=== PATIENT | male | born 1970 | race Caucasian/White ===

== ENCOUNTER 2023-03-27 13:41 | Outpatient (REF) | payer SELFPAY ==
[2023-03-27 15:01] LABS: Abs Immature Grans 0.02 10^3/uL (0.0-0.06); Absolute Basophil Count 0.05 10^3/uL (0.0-0.2); Absolute Eosinophil Count 0.11 10^3/uL (0.0-0.7); Absolute Lymphocyte Count 1.05 10^3/uL (1.2-3.4); Absolute Monocyte Count 0.34 10^3/uL (0.1-0.8); Absolute Neutrophil Count 3.84 10^3/uL (1.2-6.7); Basophils % 0.9; HCT 37.8 % (40.0-50.0); HGB 11.5 g/dL (13.5-17.5); Immature Grans % 0.4; Lymphocytes % 19.4; MCH 20.1 pg (27.0-33.0); MCHC 30.4 % (32.0-36.0); MCV 66 fL (80-95); Monocytes % 6.3; RBC 5.71 10^6/uL (4.36-5.78); RDW-SD 39.5 fL; WBC 5.41 10^3/uL (4.4-10.8)
[2023-03-27 15:23] LABS: Diff Comment Agrees w/ Instrument; Platelet Count 266 10^3/uL (130-400)
[2023-03-27 15:24] LABS: Basophilic Stippling Present; Microcytosis 2+; Poikilocytes 2+
[2023-03-27 15:39] LABS: Iron 121 ug/dL (65-175); Total Iron Binding Capacity 298 ug/dL (250-450); Transferrin Sat 41 % (20-55)
[2023-03-27 16:16] LABS: ALT 24 U/L (16-63); AST 20 U/L (15-37); Albumin 4.1 g/dL (3.4-5.0); Alkaline Phosphatase 58 U/L (46-116); Anion Gap 10.3 mmol/L (3-11); BUN 20 mg/dL (7-18); Bilirubin, Total 0.6 mg/dL (0.2-1.0); CO2 25.7 mmol/L (21.0-32.0); CREATININE 1.1 mg/dL (0.70-1.30); Calcium 9.1 mg/dL (8.5-10.1); Chloride 108 mmol/L (98-107); Estimated GFR 80.27 (mL/min/1.73m2); Ferritin 173 ng/mL (26-388); Folate 9.9 ng/mL (8.6-20.0); Glucose 95 mg/dL (74-106); Sodium 144 mmol/L (136-145); TSH (W/Ref FT4) 1.55 uIU/mL (0.36-3.74); Total Protein 6.8 g/dL (6.4-8.2); Vitamin B12 309 pg/mL (193-986)
== END 2023-03-27 13:42 | disposition home or self-care (01) ==
LOC: NCHCN 13:41
PROVIDERS: PCP Family Medicine; Visit Provider Family Medicine
DX: D56.8 Other thalassemias (principal); F10.10 Alcohol abuse, uncomplicated; R63.5 Abnormal weight gain; R42 Dizziness and giddiness
CPT/HCPCS: 80053; 82607; 82728; 82746; 83540; 83550; 84443; 85025

== ENCOUNTER 2024-03-17 16:29 | Outpatient (REF) | payer OTHER, SELFPAY ==
[2024-03-17 22:19] LABS: HCT 35.4 % (40.0-50.0); HGB 10.5 g/dL (13.5-17.5); MCH 19.9 pg (27.0-33.0); MCHC 29.7 % (32.0-36.0); Platelet Count 273 10^3/uL (130-400); RBC 5.28 10^6/uL (4.36-5.78); RDW 14.8 % (11.8-14.1); RDW-SD 34.3 fL; WBC 6.19 10^3/uL (4.4-10.8)
[2024-03-17 22:37] LABS: MCV 67 fL (80-95)
[2024-03-17 22:52] LABS: ALT 24 U/L (16-63); AST 17 U/L (15-37); Alkaline Phosphatase 65 U/L (46-116); Anion Gap 8.9 mmol/L (3-11); BUN 22 mg/dL (7-18); CO2 27.1 mmol/L (21.0-32.0); CREATININE 1.2 mg/dL (0.70-1.30); Calcium 8.9 mg/dL (8.5-10.1); Calculated LDL 92 mg/dL (<100); Chloride 110 mmol/L (98-107); Cholesterol 167 mg/dL (<200); Estimated GFR 71.86 (mL/min/1.73m2); Folate 5.3 ng/mL (8.6-20.0); Glucose 89 mg/dL (74-106); HDL Cholesterol 50 mg/dL (40-60); Potassium 4.5 mmol/L (3.5-5.1); Sodium 146 mmol/L (136-145); Total Protein 6.8 g/dL (6.4-8.2); Triglyceride 125 mg/dL (<150); Vitamin B12 340 pg/mL (193-986)
[2024-03-22 13:19] LABS: Testosterone, Total 533 ng/dL (240-950)
== END 2024-03-17 16:30 | disposition home or self-care (01) ==
LOC: NCHCN 16:29
PROVIDERS: PCP Family Medicine; Visit Provider Family Medicine
DX: R53.83 Other fatigue (principal); G25.0 Essential tremor; Z13.220 Encounter for screening for lipoid disorders
CPT/HCPCS: 80053; 80061; 84403; 85027; 82607; 82746

== ENCOUNTER 2024-04-22 16:58 | Outpatient (REF) | payer OTHER, SELFPAY ==
[2024-04-23 18:37] LABS: PSA, Screening 0.2 ng/mL (<=3.5)
== END 2024-04-22 16:59 | disposition home or self-care (01) ==
LOC: NCHCN 16:58
PROVIDERS: PCP Family Medicine; Visit Provider Family Medicine
DX: Z12.5 Encounter for screening for malignant neoplasm of prostate (principal)
CPT/HCPCS: 84153

== ENCOUNTER 2024-09-15 13:34 | Outpatient (REF) | payer OTHER, SELFPAY ==
[2024-09-15 15:01] LABS: Abs Immature Grans 0.02 10^3/uL (0.0-0.06); Absolute Basophil Count 0.05 10^3/uL (0.0-0.2); Absolute Eosinophil Count 0.06 10^3/uL (0.0-0.7); Absolute Lymphocyte Count 1.13 10^3/uL (1.2-3.4); Absolute Monocyte Count 0.38 10^3/uL (0.1-0.8); Absolute Neutrophil Count 5.22 10^3/uL (1.2-6.7); Basophils % 0.7 %; Eosinophils % 0.9 %; HCT 36.7 % (40.0-50.0); HGB 11.1 g/dL (13.5-17.5); Immature Grans % 0.3 %; Lymphocytes % 16.5 %; MCH 19.4 pg (27.0-33.0); MCHC 30.2 % (32.0-36.0); MCV 64 fL (80-95); Monocytes % 5.5 %; Neutrophils % 76.1 %; Platelet Count 288 10^3/uL (130-400); RBC 5.73 10^6/uL (4.36-5.78); RDW 18.3 % (11.8-14.1); RDW-SD 37.9 fL; WBC 6.86 10^3/uL (4.4-10.8)
[2024-09-15 15:17] LABS: Diff Comment RBC Morph Reviewed; Microcytosis 2+; Poikilocytes 1+
[2024-09-15 15:27] LABS: ALT 19 U/L (16-63); AST 16 U/L (15-37); Alkaline Phosphatase 60 U/L (46-116); Anion Gap 6.1 mmol/L (3-11); BUN 14 mg/dL (7-18); Bilirubin, Total 0.8 mg/dL (0.2-1.0); CO2 27.9 mmol/L (21.0-32.0); Calcium 8.9 mg/dL (8.5-10.1); Chloride 108 mmol/L (98-107); Estimated GFR 89.44 (mL/min/1.73m2); Glucose 95 mg/dL (74-106); Potassium 4.1 mmol/L (3.5-5.1); Sodium 142 mmol/L (136-145); TSH (W/Ref FT4) 1.24 uIU/mL (0.36-3.74)
== END 2024-09-15 13:35 | disposition home or self-care (01) ==
LOC: NCHCN 13:34
PROVIDERS: PCP Family Medicine; Visit Provider Family Medicine
DX: R63.4 Abnormal weight loss (principal)
CPT/HCPCS: 80053; 84443; 85025